=== PATIENT | male | born 1955 | race Caucasian/White ===

== ENCOUNTER 2019-06-26 12:42 | Emergency (ER) | payer OTHER ==
[~2019-06-26] VITALS: Ht 170.1 cm; Wt 100.2 kg
[~2019-06-26 12:42] MED LIST: ALEVE220 MG PO; CLEOCIN150 MG PO; HYDROCODONE BIT1 T11 PO; Peridex 473 ML473 ML PO; VICODIN ES 7501 TAB PO; ZOFRAN4 MG PO
[2019-06-26 14:29] LABS: HEMATOCRIT 45.8 % (42.0-52.0); HEMOGLOBIN 15.5 g/dl (14.0-18.0); MEAN CELL VOLUME 91.4 fl (80.0-94.0); MEAN CORPUSCULAR HGB 30.9 pg (27.0-31.0); MEAN CORPUSCULAR HGB CONC 33.8 g/dl (33.0-37.0); MEAN PLATELET VOLUME 10.1 fl (9.6-12.3); PLATELET COUNT AUTOMATED 247 10*3/uL (130-400); RED BLOOD COUNT 5.01 10*6/uL (4.50-5.90); RED CELL DISTRI WIDTH 12.8 % (0-14.5); WHITE BLOOD COUNT 16.3 10*3/uL (4.8-10.8)
[2019-06-26 15:02] LABS: PLATELET SUFFICIENCY NORMAL (NORMAL); TOTAL CELLS COUNTED 100 #CELLS
[2019-06-26 15:03] LABS: ALBUMIN 4.6 gm/dl (3.1-4.5); ALKALINE PHOSPHATASE 63 U/L (45-117); BUN 11 mg/dl (7-24); CHLORIDE 102 mmol/L (98-107); CREATININE 1.09 mg/dL (0.70-1.30); POTASSIUM 4.5 mmol/L (3.5-5.1); SGOT/AST 30 IU/L (3-35); SGPT/ALT 53 U/L (12-78); SODIUM 136 mmol/L (136-145); TOTAL PROTEIN 8.9 gm/dL (6.4-8.2)
[2019-06-26] MEDS ORDERED: CLINDAMYCIN HC300 MG PO (17:24)
== END 2019-06-26 17:45 | disposition home or self-care (01) ==
LOC: ED 12:42
PROVIDERS: Physician Assistant
DX: L03.211 Cellulitis of face (principal); K08.89 Other specified disorders of teeth and supporting structures; Z79.899 Other long term (current) drug therapy; Z79.2 Long term (current) use of antibiotics